=== PATIENT | female | born 1940 | race American Indian/Alaskan Native ===

== ENCOUNTER 2017-01-31 11:03 | Outpatient (CLI) | payer MEDICARE ==
--- NOTE | 2017-01-31 12:54 | Mammography Report ---
Right mammogram: This exam is for evaluation of asymmetry identified on screening exam of June 20, 2016. The focal asymmetry seen only in the lateral projection is no longer identified. It is of note however that the patient is very uncooperative and this exam was done with extreme difficulty. Impression: No asymmetry. Recommendation: Annual followup. BI-RADS CATEGORY: 1 = Negative ACR BI-RADS MAMMOGRAPHIC CODES: 0 = Needs additional imaging evaluation; 1 = Negative; 2 = Benign; 3 = Probably benign; 4 = Suspicious; 5 = Malignant; 6 = Known biopsy-proven malignancy COMMENT: 1. Dense breast tissue, i.e., adenosis, fibrocystic changes, etc., may obscure an underlying neoplasm. 2. Approximately 10% of cancers are not detected with mammography. 3. A negative mammography report should not delay biopsy if a clinically suspicious mass is present.
== END 2017-01-31 11:04 | disposition home or self-care (01) ==
LOC: MAMMO 11:03
PROVIDERS: ATTEND Surgery
DX: R92.8 Other abnormal and inconclusive findings on diagnostic imaging of breast (principal)
CPT/HCPCS: G0206-RT